=== PATIENT | female | born 1960 | race Caucasian/White ===

== ENCOUNTER 2019-05-15 07:20 | Emergency (ER) | payer BC, MEDICAID ==
--- NOTE | 2019-05-15 07:31 | EDM.PDOC ---
ED HPI GENERAL MEDICAL PROBLEM - General Chief Complaint: Upper Extremity Injury/Pain Stated Complaint: THUMB IS SWOLLEN [id number] Time Seen by Provider: 05/15/19 07:31 Source of Information: Reports: Patient, Old Records, RN, RN Notes Reviewed History Limitations: Reports: No Limitations - History of Present Illness INITIAL COMMENTS - FREE TEXT/NARRATIVE: Pt presents to ER from home by POV with c/o redness with increased warmth and swelling to the left thumb and hand. 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 This morning she noticed the left thumb is swollen, red, painful, and warm. The left wrist is sore but has no edema or erythema. She has had a history of right periorbital cellulitis several years ago which resolved well on oral antibiotics. 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 She denies fever, chills, nausea or vomiting. Onset: Gradual Onset Date: 05/14/19 Duration: Constant, Getting Worse Location: Reports: Upper Extremity, Left Quality: Reports: Throbbing Severity: Moderate Improves with: Reports: None Worsens with: Reports: Movement (and Palpation) Associated Symptoms: Reports: No Other Symptoms Left Finger-Thumb Pain Score (Numeric/FACES): 6 - Related Data Allergies Allergy/AdvReac Type Severity Reaction Status Date / Time Penicillins Allergy Difficulty Verified 05/15/19 07:36 Breathing Home Meds: Home Meds . [No Known Home Meds] 06/29/15 [History] Past Medical History - Past Health History Medical/Surgical History: Denies Medical/Surgical History Dermatologic History: Reports: Cellulitis Social & Family History - Family History Family Medical History: Noncontributory - Tobacco Use Smoking Status *Q: Never Smoker - Living Situation & Occupation Living situation: Reports: with Family Occupation: Employed Review of Systems - Review of Systems Review Of Systems: ROS reveals no pertinent complaints other than HPI. ED EXAM, GENERAL - Physical Exam Exam: See Below Exam Limited By: No Limitations General Appearance: Alert, WD/WN, No Apparent Distress Throat/Mouth: Normal Voice Head: Atraumatic, Normocephalic Neck: Normal Inspection Respiratory/Chest: No Respiratory Distress Cardiovascular: Normal Peripheral Pulses, Regular Rate, Rhythm Peripheral Pulses: 3+: Radial (L), Radial (R) Extremities: Normal Capillary Refill, Other (Left thumb and thenar eminence are tender, erythematous, and swollen with increased warmth, skin is intact with the exception of some tiny cracks in the crease of the palmar thumb overlying the PIP joint. No fluctuance or drainage. There is a thin red streak spreading 11cm proximally up the volar left forearm.) Neurological: Alert, Oriented, No Motor/Sensory Deficits Psychiatric: Normal Mood Course - Vital Signs Last Recorded V/S: Last Vital Signs Temp 97.3 F 05/15/19 07:32 Pulse 76 05/15/19 07:32 Resp 14 05/15/19 07:32 BP 135/84 05/15/19 07:32 Pulse Ox 99 05/15/19 07:32 - Orders/Labs/Meds Orders: Active Orders 24 hr Category Date Time Status Peripheral IV Care [RC] . DIRECTED Care 05/15/19 07:36 Active Sodium Chloride 0.9% [Saline Flush] Med 05/15/19 07:36 Active 10 ml FLUSH ASDIRECTED PRN Vancomycin 1 gm Med 05/15/19 07:37 Active Sodium Chloride 0.9% [Normal Saline] 250 ml IV ONETIME Peripheral IV Insertion Adult [OM.PC] Stat Oth 05/15/19 07:36 Ordered Medication Orders Vancomycin HCl 1 gm/ Sodium (Chloride) 250 mls @ 167 mls/hr IV ONETIME ONE Stop: 05/15/19 09:06 Last Admin: 05/15/19 07:54 Dose: 167 mls/hr Sodium Chloride (Saline Flush) 10 ml FLUSH ASDIRECTED PRN PRN Reason: Keep Vein Open Last Admin: 05/15/19 07:54 Dose: 10 ml Labs: Laboratory Tests 05/15/19 05/15/19 Range/Units 07:42 07:42 WBC 9.9 (5.0-10.0) 10^3/uL RBC 4.14 L (4.2-5.4) 10^6/uL Hgb 12.3 (12.0-16.0) g/dL Hct 37.4 (37.0-47.0) % MCV 90.3 (80-100) fL MCH 29.7 (27.0-34.0) pg MCHC 32.9 L (33.0-35.0) g/dL Plt Count 280 (150-450) 10^3/uL Neut % (Auto) 73.4 (42.2-75.2) % Lymph % (Auto) 16.8 L (20.5-50.1) % Cataño % (Auto) 8.4 H (2-8) % Eos % (Auto) 1.1 (1.0-3.0) % Baso % (Auto) 0.3 (0.0-1.0) % C-Reactive Protein 0.9 (0.0-1.3) mg/dL Meds: Medications Generic Name Dose Route Start Last Admin Trade Name Freq PRN Reason Stop Dose Admin Vancomycin HCl 1 gm/ Sodium 250 mls @ 167 mls/hr 05/15/19 07:37 05/15/19 07: 54 Chloride IV 05/15/19 09:06 167 mls/hr ONETIME ONE Administration Sodium Chloride 10 ml 05/15/19 07:36 05/15/19 07:54 Saline Flush FLUSH 10 ml ASDIRECTED PRN Administration Keep Vein Open Discontinued Medications Generic Name Dose Route Start Last Admin Trade Name Freq PRN Reason Stop Dose Admin Diphenhydramine HCl 12.5 mg 05/15/19 07:38 05/15/19 07:54 Benadryl IVPUSH 05/15/19 07:39 12.5 mg ONETIME ONE Administration Departure - Departure Time of Disposition: 09:00 Disposition: Home, Self-Care 01 Condition: Good Clinical Impression: Cellulitis of left upper extremity - Discharge Information *PRESCRIPTION DRUG MONITORING PROGRAM REVIEWED*: No *COPY OF PRESCRIPTION DRUG MONITORING REPORT IN PATIENT ABNER: No Instructions: Cellulitis, Adult Forms: ED Department Discharge Additional Instructions: Rx: Bactrim DS Rx: Clindamycin 300mg Rx: Bactroban Ointment 2% Follow up in clinic in 3 to 4 days for recheck. Return to ER if worse at any time. - My Orders Last 24 Hours: My Active Orders 05/15/19 07:36 Peripheral IV Care [RC] . DIRECTED Sodium Chloride 0.9% [Saline Flush] 10 ml FLUSH ASDIRECTED PRN Peripheral IV Insertion Adult [OM.PC] Stat 05/15/19 07:37 Vancomycin 1 gm Sodium Chloride 0.9% [Normal Saline] 250 ml IV ONETIME - Assessment/Plan Last 24 Hours: My Active Orders 05/15/19 07:36 Peripheral IV Care [RC] . DIRECTED Sodium Chloride 0.9% [Saline Flush] 10 ml FLUSH ASDIRECTED PRN Peripheral IV Insertion Adult [OM.PC] Stat 05/15/19 07:37 Vancomycin 1 gm Sodium Chloride 0.9% [Normal Saline] 250 ml IV ONETIME
[2019-05-15 07:36] VITALS: BP 135/84; PULSE 76
[2019-05-15] MEDS: diphenhydrAMINE 50 MG/ML SDV IVPUSH ONE (07:54)
[2019-05-15] MEDS: Sodium Chloride 0.9% 10 ML Syringe FLUSH PRN (07:54)
== END 2019-05-15 09:46 | disposition home or self-care (01) ==
LOC: DL.ED 07:20
DX: L03.114 Cellulitis of left upper limb (principal); Z88.0 Allergy status to penicillin
CPT/HCPCS: 36415; 85025; 86140; 96365; 96366; 96375; 99283; J1200; J3370; J7050

== ENCOUNTER 2021-06-04 16:30 | Emergency (ER) | payer BC, OTHER ==
[2021-06-04 17:52] VITALS: BP 145/92; PULSE 79
[2021-06-04] MEDS ORDERED: Diphtheria,Pertussis(Acell),Tetanus Vaccine 0.5 ML Syringe IM ONE (18:38)
[2021-06-04 19:10] LABS: ANION GAP 12.4 mEq/L (7-13); CHLORIDE,CL 103 mmol/L (98-107); SODIUM,NA 138 mmol/L (136-145)
[2021-06-04] MEDS ORDERED: Acetaminophen 325 MG Tab PO ONE (19:47)
--- NOTE | 2021-06-04 20:18 | EDM.PDOC ---
ED HPI GENERAL MEDICAL PROBLEM - General Chief Complaint: Skin Complaint Stated Complaint: DOG BITE Time Seen by Provider: 06/04/21 19:45 Source of Information: Reports: Patient, RN History Limitations: Reports: No Limitations - History of Present Illness INITIAL COMMENTS - FREE TEXT/NARRATIVE: ED with c/o increased redness and swelling of right hand. Reports bit by family dog last night while trying to clean something off of his back fur. Dog up to date with vaccines. She is unsure last tetnus. Prior hx of cellulitis, unaware of MRSA. No fever or chills. Right Hand Pain Score (Numeric/FACES): 7 - Related Data Allergies Allergy/AdvReac Type Severity Reaction Status Date / Time Penicillins Allergy Difficulty Verified 06/04/21 20:51 Breathing snails Allergy Severe throat Uncoded 06/04/21 20:51 closed up Home Meds: Home Meds Fluorometholone 1 drop EYEBOTH BID 06/04/21 [History] Past Medical History - Past Health History Medical/Surgical History: Denies Medical/Surgical History HEENT History: Reports: Cataract Cardiovascular History: Reports: None Respiratory History: Reports: None Gastrointestinal History: Reports: None Genitourinary History: Reports: None Musculoskeletal History: Reports: None Neurological History: Reports: None Psychiatric History: Reports: None Endocrine/Metabolic History: Reports: None Hematologic History: Reports: None Immunologic History: Reports: None Oncologic (Cancer) History: Reports: None Dermatologic History: Reports: Cellulitis Social & Family History - Family History Family Medical History: No Pertinent Family History - Tobacco Use Tobacco Use Status *Q: Never Tobacco User Second Hand Smoke Exposure: No - Living Situation & Occupation Living situation: Reports: with Family Occupation: Employed ED ROS GENERAL - Review of Systems Review Of Systems: Comprehensive ROS is negative, except as noted in HPI. ED EXAM, SKIN/RASH Exam: See Below Exam Limited By: No Limitations General Appearance: Alert, Mild Distress Eye Exam: Bilateral Eye: EOMI Ears: Normal External Exam Nose: Normal Inspection Throat/Mouth: Normal Inspection Head: Atraumatic, Normocephalic Neck: Normal Inspection Respiratory/Chest: No Respiratory Distress, Lungs Clear, Normal Breath Sounds Cardiovascular: Normal Peripheral Pulses, Bradycardia GI/Abdominal: Normal Bowel Sounds, Soft, Non-Tender Extremities: Increased Warmth (right hand) Neurological: Alert, Oriented, Normal Cognition Psychiatric: Normal Affect Skin: Warm, Dry, Increased Warmth, Wound/Incision (puncture wound x 2 back of right mid ahnd superficial ) Location, Skin: Upper Extremity, Right (back of right hand with with streaking lateral wrist and lower forearm) Associated features: Warmth, Tenderness, Swelling. No: Weeping Course - Vital Signs Last Recorded V/S: Last Vital Signs Temp 98.3 F 06/04/21 17:32 Pulse 79 06/04/21 17:32 Resp 18 06/04/21 17:32 BP 145/92 H 06/04/21 17:32 Pulse Ox 99 06/04/21 17:32 - Orders/Labs/Meds Orders: Active Orders 24 hr Category Date Time Status CULTURE BLOOD [BC] Stat Lab 06/04/21 18:45 Received Labs: Laboratory Tests 06/04/21 06/04/21 06/04/21 Range/Units 18:45 18:45 18:45 WBC 10.8 H (5.0-10.0) 10^3/uL RBC 3.88 L (4.2-5.4) 10^6/uL Hgb 11.4 L (12.0-16.0) g/dL Hct 34.8 L (37.0-47.0) % MCV 89.7 (80-100) fL MCH 29.4 (27.0-34.0) pg MCHC 32.8 L (33.0-35.0) g/dL Plt Count 331 (150-450) 10^3/uL Neut % (Auto) 84.5 H (42.2-75.2) % Lymph % (Auto) 8.1 L (20.5-50.1) % Lynn % (Auto) 6.5 (2-8) % Eos % (Auto) 0.6 L (1.0-3.0) % Baso % (Auto) 0.3 (0.0-1.0) % Sodium 138 (136-145) mmol/L Potassium 3.4 L (3.5-5.1) mmol/L Chloride 103 (98-107) mmol/L Carbon Dioxide 26 (21-32) mmol/L Anion Gap 12.4 (7-13) mEq/L BUN 17 (7-18) mg/dL Creatinine 0.83 (0.55-1.02) mg/dL Est Cr Clr Drug Dosing 59.91 mL/min Estimated GFR (MDRD) > 60 BUN/Creatinine Ratio 20.5 (No establ ref range) Glucose 92 (70-99) mg/dL Lactic Acid 0.7 (0.4-2.0) mmol/L Calcium 8.7 (8.5-10.1) mg/dL Total Bilirubin 0.5 (0.2-1.0) mg/dL AST 15 (15-37) U/L ALT 15 (14-59) U/L Alkaline Phosphatase 82 (46-116) U/L Total Protein 6.7 (6.4-8.2) g/dL Albumin 3.8 (3.4-5.0) g/dL Globulin 2.9 Albumin/Globulin Ratio 1.3 Meds: Medications Discontinued Medications Generic Name Dose Route Start Last Admin Trade Name Freq PRN Reason Stop Dose Admin Acetaminophen 650 mg 06/04/21 19:47 06/04/21 19:53 Acetaminophen 325 Mg Tab PO 06/04/21 19:48 650 mg NOW ONE Administration Diphtheria/Tetanus/Acell Pertussis 0.5 ml 06/04/21 18:38 06/04/21 18:56 Diphtheria,Pertussis(Acell),Tetanus Vaccine 0.5 Ml Syringe IM 06/04/21 18:39 0.5 ml .ONCE ONE Administration Vancomycin HCl 750 mg/ Sodium 250 mls @ 166.667 mls/hr 06/04/21 18:47 06/04/21 19:13 Chloride IV 06/04/21 20:16 166.667 mls/hr ONETIME ONE Administration Departure - Departure Time of Disposition: 20:50 Disposition: Home, Self-Care 01 Condition: Good Clinical Impression: Dog bite Qualifiers: Encounter type: initial encounter Qualified Code(s): W54.0XXA - Bitten by dog, initial encounter Cellulitis of upper extremity Qualifiers: Laterality: right Qualified Code(s): L03.113 - Cellulitis of right upper limb - Discharge Information *PRESCRIPTION DRUG MONITORING PROGRAM REVIEWED*: No *COPY OF PRESCRIPTION DRUG MONITORING REPORT IN PATIENT ABNER: No Instructions: Animal Bite, Adult, [id number], Cellulitis, Adult, [id number] Forms: ED Department Discharge Additional Instructions: alternate tylenol 500mg and ibuprofen 600mg every 4 hours as needed for discomfort elevate marialuisa wrap for comfort monitor redness and swelling foow up if worsening clinic rechek or Friday doxycycline 100mg one twice daily for 10 days flagyl 250mg one three times daily for 10 days. - Avoid alcohol while taking this medication Sepsis Event Note (ED) - Focused Exam Vital Signs: Vital Signs Temp Pulse Resp BP Pulse Ox 06/04/21 17:32 98.3 F 79 18 145/92 H 99 - My Orders Last 24 Hours: My Active Orders 06/04/21 18:45 CULTURE BLOOD [BC] Stat - Assessment/Plan Last 24 Hours: My Active Orders 06/04/21 18:45 CULTURE BLOOD [BC] Stat
== END 2021-06-04 20:52 | disposition home or self-care (01) ==
LOC: DL.ED 16:30
DX: S61.451A Open bite of right hand, initial encounter (principal); L03.113 Cellulitis of right upper limb; Z23 Encounter for immunization; Z88.0 Allergy status to penicillin; Z91.013 Allergy to seafood; W54.0XXA Bitten by dog, initial encounter
CPT/HCPCS: 36415; 80053; 83605; 85025; 87040; 90471; 90715; 96365; 99283; A9270; J3370; J7050

== ENCOUNTER 2021-08-08 06:29 | Day surgery (SDC) | payer OTHER ==
[~2021-08-08 06:29] MED LIST: Proparacaine 0.5% Ophth Soln 15 ML Bottle ONE
[2021-08-08] MEDS ORDERED: Midazolam 1 MG/ML 2 ML SDV IV ONE (06:30)
[2021-08-08] MEDS ORDERED: Phenylephrine 10% Ophth Soln 5 ML Bot EYELF ONE (06:30)
[2021-08-08] MEDS ORDERED: Moxifloxacin 0.5% Ophth Soln 3 ML Bottle EYELF ONE (06:30)
[2021-08-08] MEDS ORDERED: Timolol Maleate 0.5% Ophth Soln 5 ML Bottle EYELF ONE (06:30)
[2021-08-08] MEDS ORDERED: Povidone-Iodine 5% Sterile Ophth Soln 30 ML Bottle EYELF ONE ×2 (06:30→08:05)
[2021-08-08] MEDS ORDERED: Proparacaine 0.5% Ophth Soln 15 ML Bottle EYELF ONE (06:30)
[2021-08-08] MEDS ORDERED: Tropicamide 1% Ophth Soln 15 ML Bottle EYELF ONE (06:30)
[2021-08-08] MEDS ORDERED: Cataract Ophth Solution EYELF ONE (06:30)
[2021-08-08] MEDS ORDERED: Acetaminophen/Codeine 300-30 MG Tab PO PRN (06:30)
[2021-08-08] MEDS ORDERED: Ondansetron 4 MG/2 ML SDV IVPUSH PRN (06:30)
[2021-08-08] MEDS ORDERED: Dexamethasone 4 MG/ML SDV IV ONE (06:30)
[2021-08-08] MEDS ORDERED: Sodium Chloride 0.9% 10 ML Syringe IV ONE (06:30)
[2021-08-08] MEDS ORDERED: Acetaminophen 325 MG Tab PO PRN (06:30)
[2021-08-08] MEDS ORDERED: Lidocaine 1% 30 ML SDV ONE (08:05)
[2021-08-08] MEDS ORDERED: Tetracaine HCl/PF 0.5% 4 ML Bottle EYELF ONE (08:05)
[2021-08-08] MEDS ORDERED: Diclofenac Sodium 0.1% Ophth Soln 5 ML Bottle EYELF ONE (08:06)
[2021-08-08] MEDS ORDERED: Vancomycin 500 MG SDV EYELF ONE (08:06)
[2021-08-08] MEDS ORDERED: Dexamethasone/Neomycin/Polymyxin B Ophth Oint 3.5 GM Tube EYELF ONE (08:06)
[2021-08-08] MEDS ORDERED: Apraclonidine 0.5% Ophth Soln 5 ML Bot EYELF ONE (08:06)
[2021-08-08] MEDS ORDERED: Balanced Salt Solution Ophth Irrig 500 ML Bottle IOCULAR ONE (08:07)
[2021-08-08] MEDS ORDERED: Chondroitin Sulfate/Hyaluronate Sodium Ophth Inj 0.75 ML Syringe EYELF ONE (08:07)
[2021-08-08 08:52] VITALS: BP 169/90; PULSE 64
== END 2021-08-08 09:00 | disposition home or self-care (01) ==
LOC: DL.SDS 06:29
PROVIDERS: ATTEND Ophthalmology
DX: H25.812 Combined forms of age-related cataract, left eye (principal); B35.1 Tinea unguium; Z98.890 Other specified postprocedural states; Z79.899 Other long term (current) drug therapy; Z88.0 Allergy status to penicillin; Z91.048 Other nonmedicinal substance allergy status
CPT/HCPCS: 00142; 66984; A9270; C1780; J1100; J2250; J3370

== ENCOUNTER 2021-08-22 06:18 | Day surgery (SDC) | payer OTHER ==
[2021-08-22] MEDS ORDERED: Dexamethasone 4 MG/ML SDV IV ONE (06:19)
[2021-08-22] MEDS ORDERED: Midazolam 1 MG/ML 2 ML SDV IV ONE (06:19)
[2021-08-22] MEDS ORDERED: Sodium Chloride 0.9% 10 ML Syringe IV ONE (06:19)
[2021-08-22] MEDS ORDERED: Tropicamide 1% Ophth Soln 15 ML Bottle EYERT ONE (06:30)
[2021-08-22] MEDS ORDERED: Ondansetron 4 MG/2 ML SDV IVPUSH PRN (06:30)
[2021-08-22] MEDS ORDERED: Proparacaine 0.5% Ophth Soln 15 ML Bottle EYERT ONE (06:30)
[2021-08-22] MEDS ORDERED: Phenylephrine 10% Ophth Soln 5 ML Bot EYERT ONE (06:30)
[2021-08-22] MEDS ORDERED: Cataract Ophth Solution EYERT ONE (06:30)
[2021-08-22] MEDS ORDERED: Moxifloxacin 0.5% Ophth Soln 3 ML Bottle EYERT ONE (06:30)
[2021-08-22] MEDS ORDERED: Acetaminophen/Codeine 300-30 MG Tab PO PRN (06:30)
[2021-08-22] MEDS ORDERED: Acetaminophen 325 MG Tab PO PRN (06:30)
[2021-08-22] MEDS ORDERED: Timolol Maleate 0.5% Ophth Soln 5 ML Bottle EYERT ONE (06:30)
[2021-08-22] MEDS ORDERED: Sodium Chloride 0.9% 10 ML Syringe FLUSH PRN (06:30)
[2021-08-22] MEDS ORDERED: Povidone-Iodine 5% Sterile Ophth Soln 30 ML Bottle EYERT ONE ×2 (06:30→08:07)
[2021-08-22] MEDS ORDERED: Dexamethasone/Neomycin/Polymyxin B Ophth Oint 3.5 GM Tube EYERT ONE (08:07)
[2021-08-22] MEDS ORDERED: Lidocaine 1% 30 ML SDV ONE (08:07)
[2021-08-22] MEDS ORDERED: Apraclonidine 0.5% Ophth Soln 5 ML Bot EYERT ONE (08:07)
[2021-08-22] MEDS ORDERED: Diclofenac Sodium 0.1% Ophth Soln 5 ML Bottle EYERT ONE (08:07)
[2021-08-22] MEDS ORDERED: Tetracaine HCl/PF 0.5% 4 ML Bottle EYERT ONE (08:07)
[2021-08-22] MEDS ORDERED: Chondroitin Sulfate/Hyaluronate Sodium Ophth Inj 0.75 ML Syringe EYERT ONE (08:08)
[2021-08-22] MEDS ORDERED: Balanced Salt Solution Ophth Irrig 500 ML Bottle IOCULAR ONE (08:08)
[2021-08-22] MEDS ORDERED: Vancomycin 500 MG SDV EYERT ONE (08:08)
[2021-08-22 12:38] VITALS: BP 151/88; PULSE 70
== END 2021-08-22 09:15 | disposition home or self-care (01) ==
LOC: DL.SDS 06:18
PROVIDERS: ATTEND Ophthalmology
DX: H25.811 Combined forms of age-related cataract, right eye (principal); B35.1 Tinea unguium; Z79.899 Other long term (current) drug therapy; Z88.0 Allergy status to penicillin; Z91.048 Other nonmedicinal substance allergy status
CPT/HCPCS: 00142; A9270-GY; C1780; J1100; J2250; J3370

== ENCOUNTER 2023-01-06 17:25 | Emergency (ER) | payer OTHER ==
[2023-01-06] MEDS ORDERED: Sodium Chloride 0.9% 10 ML Syringe FLUSH PRN (17:29)
[2023-01-06] MEDS ORDERED: Ondansetron 4 MG/2 ML SDV IV ONE (17:32)
[2023-01-06] MEDS ORDERED: Sodium Chloride 0.9% 1,000 ML IV ONE (17:32)
[2023-01-06] MEDS ORDERED: fentaNYL 100 MCG/2 ML SDV IVPUSH ONE (17:33)
[2023-01-06] MEDS ORDERED: Iopamidol 612 MG/ML 100 ML Bottle IVPUSH ONE (17:43)
[2023-01-06 17:49] LABS: HEMATOCRIT 31.5 % (37.0-47.0); HEMOGLOBIN 10.1 g/dL (12.0-16.0); MEAN CORPUSCULAR HEMOGLOBIN 29.9 pg (27.0-34.0); MEAN CORPUSCULAR HGB CONC 32.1 g/dL (33.0-35.0); MEAN CORPUSCULAR VOLUME 93.2 fL (80-100); PLATELET COUNT,PLT 443 10^3/uL (150-450); RED BLOOD CELL COUNT 3.38 10^6/uL (4.2-5.4); WHITE BLOOD CELL COUNT,WBC 7.5 10^3/uL (5.0-10.0)
[2023-01-06 18:08] LABS: BASOPHILS PERCENT AUTO 0.4 % (0.0-1.0); EOSINOPHILS PERCENT AUTO 0.9 % (1.0-3.0); LYMPHOCYTES PERCENT AUTO 15.3 % (20.5-50.1); MONOCYTES PERCENT AUTO 8.5 % (2-8); NEUTROPHILS PERCENT AUTO 74.9 % (42.2-75.2)
[2023-01-06 18:09] LABS: EOSINOPHILS PERCENT MAN 1 % (1-3); LYMPHOCYTES PERCENT MAN 14 % (20-50); MONOCYTES PERCENT MAN 4 % (2-8); SEG NEUTROPHILS PERCENT MAN 81 % (42-75)
[2023-01-06] MEDS: 50% Dextrose in Water 50 ML Syringe ONE ×2 (18:16→18:19)
[2023-01-06] MEDS ORDERED: 50% Dextrose in Water 50 ML Syringe IVPUSH ONE (18:17)
[2023-01-06 18:22] LABS: A/G RATIO 1.1; ALANINE AMINOTRANSFERASE,ALT 32 U/L (14-59); ALBUMIN 3.4 g/dL (3.4-5.0); ALKALINE PHOSPHATASE 173 U/L (46-116); AMYLASE 50 U/L (25-115); ASPARTATE AMNIOTRANSFERASE,AST 52 U/L (15-37); BILIRUBIN TOTAL 0.5 mg/dL (0.2-1.0); BLOOD UREA NITROGEN,BUN 32 mg/dL (7-18); BUN/CREATININE RATIO 41.6 (No establ ref range); CALCIUM 8.3 mg/dL (8.5-10.1); CARBON DIOXIDE,CO2 25 mmol/L (21-32); CHLORIDE,CL 106 mmol/L (98-107); CREATININE 0.77 mg/dL (0.55-1.02); GLUCOSE RANDOM 106 mg/dL (70-99); LACTIC ACID 1.1 mmol/L (0.4-2.0); LIPASE 90 U/L (73-393); PROTEIN TOTAL,TP 6.5 g/dL (6.4-8.2); SODIUM,NA 139 mmol/L (136-145)
[2023-01-06 18:25] LABS: INR 0.9 (0.9-1.2); PROTHROMBIN TIME 9.5 SEC (9.0-12.0); PTT,PARTIAL THROMBOPLSTIN TIME 23.2 SEC (22.0-34.0)
[2023-01-06 18:28] LABS: ESTIMATED GFR 86 mL/min (>=60); ETHANOL BLOOD MEDICAL < 3 mg/dL (0)
[2023-01-06 18:37] LABS: APPEARANCE,URINE CLEAR (CLEAR); BILIRUBIN,URINE NEGATIVE (NEGATIVE); COLOR,URINE YELLOW (YELLOW); GLUCOSE,URINE 100 (NEGATIVE); KETONES,URINE NEGATIVE (NEGATIVE); LEUKOCYTE ESTERASE,URINE NEGATIVE (NEGATIVE); NITRITE,URINE NEGATIVE (NEGATIVE); OCCULT BLOOD,URINE SMALL (NEGATIVE); PROTEIN,URINE 30 (NEGATIVE); UROBILINOGEN,URINE 0.2 mg/dL (0.2-1.0)
[2023-01-06 18:42] LABS: AMPHETAMINES,URINE NEGATIVE (NEGATIVE); BARBITURATES,URINE NEGATIVE (NEGATIVE); BENZODIAZEPINE,URINE NEGATIVE (NEGATIVE); MDMA (ECSTASY), URINE NEGATIVE (NEGATIVE); METHADONE,URINE NEGATIVE (NEGATIVE); METHAMPHETAMINES,URINE NEGATIVE (NEGATIVE); OPIATES,URINE NEGATIVE (NEGATIVE); OXYCODONE,URINE NEGATIVE (NEGATIVE); PHENCYCLIDINE,URINE NEGATIVE (NEGATIVE); TCA,URINE NEGATIVE (NEGATIVE)
[2023-01-06 18:48] LABS: BACTERIA,URINE OCCASIONAL /HPF (0-FEW/HPF); EPITHELIAL CELLS,URINE OCCASIONAL /HPF (NOT SEEN); MUCUS,URINE RARE /LPF (NOT SEEN); WBC,URINE 0-5 /HPF (0-5/HPF)
== END 2023-01-06 18:45 ==
LOC: DL.ED 17:25
DX: S06.5X1A Traumatic subdural hemorrhage with loss of consciousness of 30 minutes or less, initial encounter (principal); Z88.0 Allergy status to penicillin; Z91.09 Other allergy status, other than to drugs and biological substances; W10.8XXA Fall (on) (from) other stairs and steps, initial encounter
CPT/HCPCS: 36415; 51702; 70450; 71260; 72125; 74177; 80053; 80305; 80307; 81001; 82150; 82947; 83605; 83690; 84145; 84484; 85025; 85610; 85730; 93005; 96374; 96375; 99285; J2405; J3010; J7030; Q9967; J3490